=== PATIENT | male | born 1960 | race Caucasian/White ===

== ENCOUNTER 2016-08-09 17:58 | Emergency (ER) | payer OTHER ==
[~2016-08-09] VITALS: Ht 172.7 cm; Wt 80.5 kg
[~2016-08-09 17:58] MED LIST: CLEOCIN300 MG; DURAGESIC25 MCG; DURAGESIC25 MCG TD; Duragesic TD; Imodium PO; LISINOPRIL10 MG PO; Levaquin; Protonix; ROXICODONE GT; oxyCODONE PO
[2016-08-09 19:37] VITALS: BP 99/62
== END 2016-08-09 19:37 | disposition home or self-care (01) ==
LOC: RME 17:58 → EME 17:58 → RME 19:37
PROC: 0D20XUZ Change Feeding Device in Upper Intestinal Tract, External Approach (ICD-10-PCS; principal; 2016-08-09)
DX: Z43.1 Encounter for attention to gastrostomy (principal); Z93.0 Tracheostomy status; Z85.810 Personal history of malignant neoplasm of tongue; Z87.891 Personal history of nicotine dependence
CPT/HCPCS: 74000; 99281; 99283

== ENCOUNTER 2016-09-28 08:39 | Emergency (ER) | payer OTHER ==
[~2016-09-28] VITALS: Ht 170.2 cm; Wt 75.1 kg
[2016-09-28 11:00] VITALS: BP 98/62
[2016-10-04] MEDS ORDERED: OXYCODONE H5 MG/5 ML PO (20:31)
== END 2016-09-28 11:00 | disposition home or self-care (01) ==
LOC: EME 08:39
PROC: 0D20XUZ Change Feeding Device in Upper Intestinal Tract, External Approach (ICD-10-PCS; principal; 2016-09-28)
DX: K94.20 Gastrostomy complication, unspecified (principal); Z85.810 Personal history of malignant neoplasm of tongue; Z87.891 Personal history of nicotine dependence; Z85.819 Personal history of malignant neoplasm of unspecified site of lip, oral cavity, and pharynx; Z93.0 Tracheostomy status
CPT/HCPCS: 74000; 99281; 99284; B4087

== ENCOUNTER 2016-10-02 14:29 | Inpatient (IN) | payer OTHER ==
[~2016-10-02] VITALS: Ht 162.6 cm; Wt 78.2 kg
[2016-10-02 15:28] LABS: CHLORIDE 81 mEq/L (99-109); POTASSIUM 2.9 mEq/L (3.7-5.4); SODIUM 132 mEq/L (136-147)
[2016-10-02 15:30] LABS: GLUCOSE 124 mg/dL (70-99)
[2016-10-02 15:31] LABS: HEMATOCRIT 19.3 % (38.0-50.0); MCH 27.6 PG (29.0-34.0); MCHC 31.6 G/DL (30.0-36.0); MCV 87.3 FL (86-99); MEAN PLAT.VOLUME 10.6 uM^3 (9.0-12.4); PLATELET COUNT 138 K/uL (156-360); RBC DIS.WIDTH-CV 17.3 % (11.8-14.6); RBC DIS.WIDTH-SD 53.9 % (39-53); RED BLOOD COUNT 2.21 M/uL (4.00-5.50)
[2016-10-02 15:32] LABS: ANION GAP 17 MEQ/L (2-14)
[2016-10-02 15:34] LABS: GFR ESTIMATE (CALCULATED) 56 mL/min/
[2016-10-02 15:35] LABS: UREA NITROGEN (BUN) 30 mg/dL (9-23)
[2016-10-02 18:25] LABS: INTER. NORMALIZED RATIO 1.1; PROTHROMBIN TIME 11.3 (9.2-11.2); PTT 27.6 (25-32)
[2016-10-02 19:06] LABS: Estimated Average Glucose 77 mg/dL (70-123)
[2016-10-02 20:17] LABS: HEMOGLOBIN A1c (GLYCOHEMOGLOB) 4.3 % HGB (Below 5.7)
[2016-10-02 20:39] VITALS: BP 103/77
[2016-10-02 21:57] VITALS: BP 135/81
[2016-10-02 22:57] VITALS: BP 135/81
[2016-10-03] VITALS (10 sets, daily range): BP systolic 105–166; BP diastolic 58–82
[2016-10-03 07:23] LABS: ANION GAP 11 MEQ/L (2-14); CHLORIDE 85 MEQ/L (99-109); GFR ESTIMATE (CALCULATED) > 59 mL/min/; POTASSIUM 3.3 MEQ/L (3.7-5.4); SAMPLE HEMOLYSIS CHECK 0; SAMPLE ICTERIC CHECK 0; SAMPLE LIPEMIA CHECK 0; SODIUM 130 MEQ/L (136-147); UREA NITROGEN (BUN) 30 mg/dL (9-23)
[2016-10-03 07:27] LABS: GLUCOSE 92 mg/dL (70-99)
[2016-10-03 08:00] LABS: HEMATOCRIT 24.2 % (38.0-50.0); MCH 28.5 PG (29.0-34.0); MCHC 32.6 G/DL (30.0-36.0); MCV 87.4 FL (86-99); MEAN PLAT.VOLUME 11.2 uM^3 (9.0-12.4); PLATELET COUNT 105 K/uL (156-360); RBC DIS.WIDTH-CV 16.4 % (11.8-14.6); WHITE BLOOD COUNT 6.9 K/uL (4.1-10.2)
[2016-10-03 08:12] LABS: RED BLOOD COUNT 2.77 M/uL (4.00-5.50)
[2016-10-03 12:57] LABS: ABSOLUTE RETICULOCYTE CT. 0.1 M/uL (0.02-0.08); IMM.RETIC FRACTION 24.9 % (3-19); RETIC HGB EQUIVALENT 24.4 (28-36); RETICULOCYTE COUNT 3.1 % (0.5-1.8)
[2016-10-03 13:31] LABS: ALKALINE PHOSPHATASE 89 IU/L (3-129); ANION GAP 10 MEQ/L (2-14); C-REACTIVE PROTEIN 33.8 MG/L (0-10); CHLORIDE 85 MEQ/L (99-109); GFR ESTIMATE (CALCULATED) > 59 mL/min/; GLOBULINS 3.3 G/DL (2.3-3.5); GLUCOSE 105 mg/dL (70-99); POTASSIUM 3.5 MEQ/L (3.7-5.4); PREALBUMIN 16.7 mg/dL (10-40); SAMPLE HEMOLYSIS CHECK 0; SAMPLE ICTERIC CHECK 0; SAMPLE LIPEMIA CHECK 0; SODIUM 129 MEQ/L (136-147); TOTAL BILIRUBIN 0.6 MG/DL (0.0-1.0); UREA NITROGEN (BUN) 27 mg/dL (9-23)
[2016-10-03 13:42] LABS: FERRITIN 27 NG/ML (22-322)
[2016-10-03 19:58] LABS: HEMATOCRIT 24.9 % (38.0-50.0); MCV 87.4 FL (86-99)
[2016-10-04 03:32] VITALS: BP 101/61
[2016-10-04 07:22] LABS: EOSINOPHIL (%) 2.7 % (0-5); EOSINOPHIL COUNT 0.2 K/uL (0-0.3); HEMATOCRIT 26.9 % (38.0-50.0); IMMATURE GRANULOCYTE (%) 0.9 % (0.0-0.7); IMMATURE GRANULOCYTE COUNT 0.1 K/uL; INSTRUMENT ABS NEUTROPHIL CT 4.4 K/uL; LYMPHOCYTE COUNT 0.3 K/uL (1.0-2.8); MCH 27.7 PG (29.0-34.0); MCHC 31.6 G/DL (30.0-36.0); MCV 87.6 FL (86-99); MEAN PLAT.VOLUME 11.7 uM^3 (9.0-12.4); MONOCYTE COUNT 0.9 K/uL (0-0.8); NEUTROPHIL (%) 75.9 % (45-76); NEUTROPHIL COUNT 4.4 K/uL (1.8-6.4); PLATELET COUNT 101 K/uL (156-360); RBC DIS.WIDTH-CV 16.7 % (11.8-14.6); RBC DIS.WIDTH-SD 52.3 % (39-53); RED BLOOD COUNT 3.07 M/uL (4.00-5.50); WHITE BLOOD COUNT 5.9 K/uL (4.1-10.2)
[2016-10-04 07:29] VITALS: BP 95/62
[2016-10-04 07:43] LABS: ALKALINE PHOSPHATASE 82 IU/L (3-129); ANION GAP 9 MEQ/L (2-14); CHLORIDE 88 MEQ/L (99-109); GFR ESTIMATE (CALCULATED) > 59 mL/min/; GLUCOSE 78 mg/dL (70-99); POTASSIUM 3.6 MEQ/L (3.7-5.4); SAMPLE HEMOLYSIS CHECK 0; SAMPLE ICTERIC CHECK 0; SAMPLE LIPEMIA CHECK 0; SODIUM 129 MEQ/L (136-147); TOTAL BILIRUBIN 0.6 MG/DL (0.0-1.0); UREA NITROGEN (BUN) 22 mg/dL (9-23)
[2016-10-04 11:22] VITALS: BP 112/60
[2016-10-04 15:13] VITALS: BP 104/68
[2016-10-04 19:54] VITALS: BP 106/63
[2016-10-04] MEDS ORDERED: OXYCODONE H5 MG/5 ML GT (20:31)
[2016-10-04 21:02] VITALS: BP 117/72
[2016-10-05] VITALS: BP 88/57
[2016-10-05 07:28] LABS: HEMATOCRIT 23.9 % (38.0-50.0); MCH 28.9 PG (29.0-34.0); MCHC 33.5 G/DL (30.0-36.0); MCV 86.3 FL (86-99); PLATELET COUNT 231 K/uL (156-360); RBC DIS.WIDTH-CV 17.1 % (11.8-14.6); RBC DIS.WIDTH-SD 52.1 % (39-53); RED BLOOD COUNT 2.77 M/uL (4.00-5.50)
[2016-10-05 07:31] LABS: ANION GAP 12 MEQ/L (2-14); CHLORIDE 94 MEQ/L (99-109); GFR ESTIMATE (CALCULATED) > 59 mL/min/; GLUCOSE 88 mg/dL (70-99); POTASSIUM 3.2 MEQ/L (3.7-5.4); SAMPLE HEMOLYSIS CHECK 0; SAMPLE ICTERIC CHECK 0; SAMPLE LIPEMIA CHECK 0; SODIUM 132 MEQ/L (136-147); UREA NITROGEN (BUN) 16 mg/dL (9-23)
[2016-10-05 08:03] VITALS: BP 88/51
[2016-10-05 08:25] LABS: LACTATE DEHYDROGENASE 153 IU/L (20-246)
[2016-10-05 09:12] LABS: EOSINOPHIL (%) 4.2 % (0-5); EOSINOPHIL COUNT 0.2 K/uL (0-0.3); IMMATURE GRANULOCYTE (%) 1.2 % (0.0-0.7); IMMATURE GRANULOCYTE COUNT 0.1 K/uL; INSTRUMENT ABS NEUTROPHIL CT 3.7 K/uL; LYMPHOCYTE COUNT 0.2 K/uL (1.0-2.8); MONOCYTE (%) 15.9 % (3-12); MONOCYTE COUNT 0.8 K/uL (0-0.8); NEUTROPHIL (%) 73.3 % (45-76); NEUTROPHIL COUNT 3.7 K/uL (1.8-6.4)
[2016-10-05 11:26] LABS: IFE GEL NO. 36-8
[2016-10-05 12:40] LABS: POC NON-PRINT COM 1 ND
[2016-10-06 00:18] VITALS: BP 112/71
[2016-10-06 08:02] VITALS: BP 117/78
[2016-10-06 08:21] LABS: ANION GAP 12 MEQ/L (2-14); CHLORIDE 94 MEQ/L (99-109); GFR ESTIMATE (CALCULATED) > 59 mL/min/; GLUCOSE 83 mg/dL (70-99); SAMPLE HEMOLYSIS CHECK 0; SAMPLE ICTERIC CHECK 0; SAMPLE LIPEMIA CHECK 0; SODIUM 133 MEQ/L (136-147); UREA NITROGEN (BUN) 16 mg/dL (9-23)
[2016-10-06 08:38] LABS: EOSINOPHIL (%) 4.3 % (0-5); EOSINOPHIL COUNT 0.2 K/uL (0-0.3); HEMATOCRIT 26.1 % (38.0-50.0); IMMATURE GRANULOCYTE (%) 1.1 % (0.0-0.7); IMMATURE GRANULOCYTE COUNT 0.1 K/uL; INSTRUMENT ABS NEUTROPHIL CT 4.1 K/uL; LYMPHOCYTE COUNT 0.2 K/uL (1.0-2.8); MCH 27.8 PG (29.0-34.0); MCHC 31.4 G/DL (30.0-36.0); MCV 88.5 FL (86-99); MONOCYTE (%) 13.4 % (3-12); MONOCYTE COUNT 0.7 K/uL (0-0.8); NEUTROPHIL (%) 76.3 % (45-76); NEUTROPHIL COUNT 4.1 K/uL (1.8-6.4); NRBC (%) 0.4 /100 WBC (0-0); RBC DIS.WIDTH-SD 53.5 % (39-53); RED BLOOD COUNT 2.95 M/uL (4.00-5.50); WHITE BLOOD COUNT 5.4 K/uL (4.1-10.2)
[2016-10-06 09:36] LABS: PLAT.SUFFICIENCY ADEQUATE; PLATELET CLUMPS PRESENT - PLATELET COUNT APPEARS ADQ.; PLATELET COUNT UNABLE TO REPORT K/uL (156-360)
[2016-10-06 11:09] VITALS: BP 129/86
[2016-10-06 15:10] VITALS: BP 152/74
[2016-10-07 00:09] VITALS: BP 143/79
[2016-10-07 08:01] VITALS: BP 99/63
[2016-10-07] MEDS ORDERED: FEOSOL300 MG/5 M GT (10:42)
[2016-10-10 13:42] LABS: ALBUMIN 3.12 G/DL (3.6-4.9); ALBUMIN PERCENT 50.4 %; ALPHA-1 GLOBULIN 0.36 G/DL (0.15-0.40); ALPHA-1 PERCENT 5.8 %; ALPHA-2 GLOBULIN 0.87 G/DL (0.45-0.85); ALPHA-2 PERCENT 14.1 %; BETA PERCENT 12.1 %; GAMMA PERCENT 17.6 %; SERUM GEL NO. 41-3
== END 2016-10-07 12:49 | disposition home health service (06) | DRG 812 ==
LOC: EME 14:29 → EDOF 20:54 → 5SOUTH 20:54 → 4EAST 20:54 → 5SOUTH 10-04 21:02
PROVIDERS: Hospitalist; Internal Medicine; Internal Medicine Hematology & Oncology; Student in an Organized Health Care Education/Training Program
PROC: 30233N1 Transfusion of Nonautologous Red Blood Cells into Peripheral Vein, Percutaneous Approach (ICD-10-PCS; principal; 2016-10-02)
DX: D53.9 Nutritional anemia, unspecified (principal); N17.9 Acute kidney failure, unspecified; E87.6 Hypokalemia; E87.1 Hypo-osmolality and hyponatremia; D50.9 Iron deficiency anemia, unspecified; F10.10 Alcohol abuse, uncomplicated; I95.9 Hypotension, unspecified; G89.29 Other chronic pain; R00.0 Tachycardia, unspecified; Z87.891 Personal history of nicotine dependence; Z85.810 Personal history of malignant neoplasm of tongue; Z93.0 Tracheostomy status; Z93.1 Gastrostomy status
CPT/HCPCS: 49440; 71020; 76705; 80048; 80053; 81003; 82272; 82607; 82728; 82746; 83010 90; 83036; 83605; 83615; 83883 90; 84134; 84165; 85014; 85018; 85025; 85027; 85045; 85610; 85651; 85730; 86140; 86334; 86850; 86900; 86901; 86920; 87040; 93005; 94799; 99281; 99285; B4087; C1892; J1644; J1756; J3480; J7030; J7050; P9016

== ENCOUNTER 2016-10-08 15:38 | Inpatient (IN) | payer OTHER ==
[~2016-10-08] VITALS: Ht 170.2 cm; Wt 77.8 kg
[~2016-10-08 15:38] MED LIST changes: +FEOSOL300 MG/5 M GT; +OXYCODONE H5 MG/5 ML GT
[2016-10-08 17:21] LABS: HEMATOCRIT 26.9 % (38.0-50.0); MCH 28.1 PG (29.0-34.0); MCV 87.9 FL (86-99); MEAN PLAT.VOLUME 11.3 uM^3 (9.0-12.4); RBC DIS.WIDTH-CV 16.6 % (11.8-14.6); RBC DIS.WIDTH-SD 52.8 % (39-53); RED BLOOD COUNT 3.06 M/uL (4.00-5.50); WHITE BLOOD COUNT 4.3 K/uL (4.1-10.2)
[2016-10-08 17:33] LABS: POTASSIUM 3.3 mEq/L (3.7-5.4); SODIUM 133 mEq/L (136-147)
[2016-10-08 17:35] LABS: GLUCOSE 73 mg/dL (70-99)
[2016-10-08 17:36] LABS: ANION GAP 17 MEQ/L (2-14)
[2016-10-08 17:37] LABS: CHLORIDE 99 mEq/L (99-109)
[2016-10-08 17:38] LABS: SERUM ETHYL ALCOHOL 257 mg/dL
[2016-10-08 17:39] LABS: GFR ESTIMATE (CALCULATED) > 59 mL/min/
[2016-10-08 17:41] LABS: UREA NITROGEN (BUN) 14 mg/dL (9-23)
[2016-10-08 17:42] LABS: SALICYLATE < 5.0 MG/DL (15-30)
[2016-10-08 17:45] LABS: TROP-I INTERPRETATION NEGATIVE; TROPONIN-I < 0.01 ng/mL (0.0-0.30)
[2016-10-08 17:51] LABS: PLATELET COUNT 88 K/uL (156-360)
[2016-10-08 20:49] LABS: ADD MEDTOX COMMENT Y; AMPHETAMINE NEGATIVE (500 ng/mL); BARBITURATES NEGATIVE (200 ng/mL); BENZODIAZEPINES PRESUMPTIVE POSITIVE (150 ng/mL); COCAINE NEGATIVE (150 ng/mL); INTERNAL CONTROLS VALID? YES; METHADONE NEGATIVE (200 ng/mL); METHAMPHETAMINE NEGATIVE (500 ng/mL); OPIATES (MORPHINE) NEGATIVE (100 ng/mL); OXYCODONE PRESUMPTIVE POSITIVE (100 ng/mL); PHENCYCLIDINE NEGATIVE (25 ng/mL); PROPOXYPHENE NEGATIVE (300 ng/mL); THC CANNABINOIDS NEGATIVE (50 ng/mL); TRICYCLIC ANTIDEPRESSANTS NEGATIVE (300 ng/mL)
[2016-10-08 20:50] LABS: BILIRUBIN NEGATIVE; BLOOD NEGATIVE; COLOR YELLOW ((YELLOW)); GLUCOSE (STRIP) NEGATIVE; KETONES 5; LEUKOCYTES NEGATIVE; NITRITE NEGATIVE; PROTEIN (STRIP) NEGATIVE; SPECIFIC GRAVITY 1.008 (1.000-1.030); UROBILINOGEN 0.2 MG/DL (0.2-1.0)
[2016-10-08 20:53] LABS: ADD MIUA? NO; UCUL ADDED? NO
[2016-10-08 21:16] LABS: BENZODIAZEPINES, URINE SCREEN POSITIVE (200 ng/mL)
[2016-10-09] VITALS (10 sets, daily range): BP systolic 132–152; BP diastolic 61–95
[2016-10-09 09:44] LABS: BASE EXCESS -1.4 mEq/L (-3 to +3); BICARBONATE 22.2 mEq/L (22-26); CARBOXY HGB 2.1 % (0-5); COMMENTS - BLOOD GASES A+C+; DEVICE TRACH COLOR; FI02 40 %; METHEMOGLOBIN 1.3 % (0-1.5); O2 FLOW 8 L/MIN; PCO2 32 mm Hg (35-45); PO2 114 mm Hg (80-100); SITE LR; TOTAL RESP RATE 14 resp/min; pH 7.45 (7.35-7.45)
[2016-10-09 10:25] LABS: EOSINOPHIL (%) 1.9 % (0-5); EOSINOPHIL COUNT 0.1 K/uL (0-0.3); HEMATOCRIT 25.6 % (38.0-50.0); IMMATURE GRANULOCYTE (%) 1.2 % (0.0-0.7); IMMATURE GRANULOCYTE COUNT 0.1 K/uL; INSTRUMENT ABS NEUTROPHIL CT 3.7 K/uL; LYMPHOCYTE COUNT 0.3 K/uL (1.0-2.8); MCH 28.1 PG (29.0-34.0); MCHC 30.9 G/DL (30.0-36.0); MCV 91.1 FL (86-99); MONOCYTE (%) 13.3 % (3-12); MONOCYTE COUNT 0.6 K/uL (0-0.8); NEUTROPHIL (%) 76.8 % (45-76); NEUTROPHIL COUNT 3.7 K/uL (1.8-6.4); PLATELET COUNT 103 K/uL (156-360); RBC DIS.WIDTH-CV 16.6 % (11.8-14.6); RED BLOOD COUNT 2.81 M/uL (4.00-5.50); WHITE BLOOD COUNT 4.8 K/uL (4.1-10.2)
[2016-10-09 10:55] LABS: ALKALINE PHOSPHATASE 87 IU/L (3-129); ANION GAP 10 MEQ/L (2-14); GFR ESTIMATE (CALCULATED) > 59 mL/min/; GLUCOSE 82 mg/dL (70-99); MAGNESIUM 1.4 mg/dl (1.3-2.7); SAMPLE HEMOLYSIS CHECK 0; SAMPLE ICTERIC CHECK 0; SAMPLE LIPEMIA CHECK 0; UREA NITROGEN (BUN) 12 mg/dL (9-23)
[2016-10-09 11:02] LABS: TOTAL BILIRUBIN 0.4 MG/DL (0.0-1.0)
[2016-10-09 11:55] LABS: CHLORIDE 103 MEQ/L (99-109); POTASSIUM 3.9 MEQ/L (3.7-5.4); SODIUM 137 MEQ/L (136-147)
[2016-10-09 13:38] LABS: METH RESISTANT S AUREUS PCR NEGATIVE (NEGATIVE); PROBE CHECK PASS; SPECIMEN PROCESSING CONTROL PASS
[2016-10-10] VITALS (12 sets, daily range): BP systolic 131–166; BP diastolic 81–105
[2016-10-10 05:56] LABS: EOSINOPHIL (%) 2.7 % (0-5); EOSINOPHIL COUNT 0.1 K/uL (0-0.3); HEMATOCRIT 24.6 % (38.0-50.0); IMMATURE GRANULOCYTE (%) 1.1 % (0.0-0.7); IMMATURE GRANULOCYTE COUNT 0.1 K/uL; INSTRUMENT ABS NEUTROPHIL CT 3.1 K/uL; LYMPHOCYTE COUNT 0.2 K/uL (1.0-2.8); MCH 27.4 PG (29.0-34.0); MCHC 29.7 G/DL (30.0-36.0); MCV 92.5 FL (86-99); MEAN PLAT.VOLUME 12.1 uM^3 (9.0-12.4); MONOCYTE (%) 19.3 % (3-12); MONOCYTE COUNT 0.9 K/uL (0-0.8); NEUTROPHIL (%) 71.2 % (45-76); NEUTROPHIL COUNT 3.1 K/uL (1.8-6.4); PLATELET COUNT 105 K/uL (156-360); RBC DIS.WIDTH-CV 17.2 % (11.8-14.6); RBC DIS.WIDTH-SD 56.2 % (39-53); RED BLOOD COUNT 2.66 M/uL (4.00-5.50); WHITE BLOOD COUNT 4.4 K/uL (4.1-10.2)
[2016-10-10 06:56] LABS: ALKALINE PHOSPHATASE 73 IU/L (3-129); ANION GAP 10 MEQ/L (2-14); CHLORIDE 105 MEQ/L (99-109); GFR ESTIMATE (CALCULATED) > 59 mL/min/; POTASSIUM 3.9 MEQ/L (3.7-5.4); SAMPLE HEMOLYSIS CHECK 0; SAMPLE ICTERIC CHECK 0; SAMPLE LIPEMIA CHECK 0; SODIUM 140 MEQ/L (136-147); UREA NITROGEN (BUN) 13 mg/dL (9-23)
[2016-10-10 06:57] LABS: GLUCOSE 104 mg/dL (70-99)
[2016-10-10 06:58] LABS: TOTAL BILIRUBIN 0.3 MG/DL (0.0-1.0)
[2016-10-11 01:25] VITALS: BP 161/91
[2016-10-11 04:52] VITALS: BP 150/76
[2016-10-11 07:32] VITALS: BP 166/78
[2016-10-11 11:30] VITALS: BP 157/87
== END 2016-10-11 15:48 | DRG 922 ==
LOC: EME → EDBD 15:38 → EME 15:38 → EDOF 10-09 00:27 → 5WEST 10-09 01:30 → 4WEST 10-09 09:38 → 5WEST 10-09 09:38 → 4EAST 10-09 09:38 → 4WEST 10-09 11:41 → 4EAST 10-11 00:07
PROVIDERS: Emergency Medicine; Hospitalist
PROC: 0HQHXZZ Repair Right Upper Leg Skin, External Approach (ICD-10-PCS; principal; 2016-10-10)
DX: T68.XXXA Hypothermia, initial encounter (principal); G93.40 Encephalopathy, unspecified; X31.XXXA Exposure to excessive natural cold, initial encounter; Y92.029 Unspecified place in mobile home as the place of occurrence of the external cause; J96.20 Acute and chronic respiratory failure, unspecified whether with hypoxia or hypercapnia; R22.0 Localized swelling, mass and lump, head; S71.011A Laceration without foreign body, right hip, initial encounter; W06.XXXA Fall from bed, initial encounter; Y92.230 Patient room in hospital as the place of occurrence of the external cause; Y99.8 Other external cause status; F10.231 Alcohol dependence with withdrawal delirium; Y90.8 Blood alcohol level of 240 mg/100 ml or more; R62.7 Adult failure to thrive; Z66 Do not resuscitate; Z51.5 Encounter for palliative care; D64.9 Anemia, unspecified; E87.6 Hypokalemia; E86.0 Dehydration; G89.29 Other chronic pain; F41.9 Anxiety disorder, unspecified; Z93.0 Tracheostomy status; Z93.1 Gastrostomy status; Z93.3 Colostomy status; Z85.810 Personal history of malignant neoplasm of tongue; Z79.891 Long term (current) use of opiate analgesic; Z87.891 Personal history of nicotine dependence; Z92.3 Personal history of irradiation; Z91.19 Patient's noncompliance with other medical treatment and regimen
CPT/HCPCS: 36600; 70450; 70498; 71010; 80048; 80053; 81003; 82803; 83605; 83735; 84484; 84999; 85025; 85027; 87040; 87641; 93005; 93306; 94640; 94640 76; 94799; 99202; 99281; 99285; G0480; J1200; J1630; J1650; J2060; J2270; J3411; J7030; J7608; S0028

== ENCOUNTER 2016-10-11 16:01 | Inpatient (IN) | payer OTHER ==
[2016-10-14 23:32] VITALS: BP 160/99
[2016-10-15] VITALS: BP 160/99
[2016-10-15 22:30] VITALS: BP 173/94
[2016-10-25 08:35] VITALS: BP 0/0
[2016-10-25] MEDS ORDERED: NAPROXEN500 MG PO (11:02)
[2016-10-25] MEDS ORDERED: BACTROBAN OINTM22 GM TP (11:02)
[2016-10-25] MEDS ORDERED: BISAC-EVAC10 MG PR (11:02)
[2016-10-25] MEDS ORDERED: COMPAZINE10 MG GT (11:02)
== END 2016-10-25 10:50 | disposition hospice, home (50) | DRG 951 ==
LOC: 4EAST 16:01 → 5EAST 16:01
DX: Z51.5 Encounter for palliative care (principal); J96.20 Acute and chronic respiratory failure, unspecified whether with hypoxia or hypercapnia; R62.7 Adult failure to thrive; Z66 Do not resuscitate; M1A.0710 Idiopathic chronic gout, right ankle and foot, without tophus (tophi); D50.8 Other iron deficiency anemias; F41.9 Anxiety disorder, unspecified; Z93.1 Gastrostomy status; Z93.0 Tracheostomy status; Z85.810 Personal history of malignant neoplasm of tongue; Z90.49 Acquired absence of other specified parts of digestive tract
CPT/HCPCS: 94799; J1200; J1630; J2060; J2270; J2920; J7512; Q0164

== ENCOUNTER 2016-11-12 10:11 | Emergency (ER) | payer OTHER ==
[~2016-11-12] VITALS: Ht 172.7 cm; Wt 77.9 kg
[~2016-11-12 10:11] MED LIST changes: +BACTROBAN OINTM22 GM TP; +BISAC-EVAC10 MG PR; +COMPAZINE10 MG GT; +NAPROXEN500 MG PO
[2016-11-12 14:16] VITALS: BP 145/94
== END 2016-11-12 14:10 | disposition home or self-care (01) ==
LOC: EME 10:11
PROC: 3C1ZX8Z Irrigation of Indwelling Device using Irrigating Substance, External Approach (ICD-10-PCS; principal; 2016-11-12)
DX: T82.898A Other specified complication of vascular prosthetic devices, implants and grafts, initial encounter (principal); Z93.0 Tracheostomy status; Z85.810 Personal history of malignant neoplasm of tongue; G89.29 Other chronic pain; M54.9 Dorsalgia, unspecified; Z87.891 Personal history of nicotine dependence
CPT/HCPCS: 99281; 99284; J0692; J2997; J7050

== ENCOUNTER → 2016-11-15 | Outpatient (CLI) | payer OTHER | END | disposition home or self-care (01) | LOC: PICC 13:45 | DX: M27.2 Inflammatory conditions of jaws (principal) | CPT/HCPCS: 76937 ==

== ENCOUNTER → 2017-03-07 | Outpatient (CLI) | payer OTHER ==
[~2017-03-07] MED LIST changes: +LISINOPRIL10 MG GT
== END | disposition home or self-care (01) ==
LOC: AMB 12:58
PROC: 0DH Gastrointestinal System, Insertion (ICD-10-PCS; principal; 2017-03-07)
DX: K94.23 Gastrostomy malfunction (principal); C76.0 Malignant neoplasm of head, face and neck
CPT/HCPCS: 43760; B4087

== ENCOUNTER 2017-05-28 11:25 | Observation (INO) | payer OTHER ==
[~2017-05-28] VITALS: Ht 172.7 cm; Wt 82.0 kg
[2017-05-28 12:00] LABS: HEMATOCRIT 31.9 % (38.0-50.0); MCH 31.4 PG (29.0-34.0); MCHC 34.2 G/DL (30.0-36.0); MCV 91.9 FL (86-99); MEAN PLAT.VOLUME 10.5 uM^3 (9.0-12.4); PLATELET COUNT 191 K/uL (156-360); RBC DIS.WIDTH-CV 15.7 % (11.8-14.6); RBC DIS.WIDTH-SD 52.5 % (39-53); RED BLOOD COUNT 3.47 M/uL (4.00-5.50); WHITE BLOOD COUNT 12.2 K/uL (4.1-10.2)
[2017-05-28 12:12] LABS: CHLORIDE 96 mEq/L (99-109); POTASSIUM 3.9 mEq/L (3.7-5.4); SODIUM 134 mEq/L (136-147)
[2017-05-28 12:14] LABS: GLUCOSE 126 mg/dL (70-99)
[2017-05-28 12:15] LABS: ANION GAP 8 MEQ/L (2-14)
[2017-05-28 12:18] LABS: GFR ESTIMATE (CALCULATED) > 59 mL/min/
[2017-05-28 12:19] LABS: UREA NITROGEN (BUN) 47 mg/dL (9-23)
[2017-05-28 14:55] LABS: INTER. NORMALIZED RATIO 1.1
[2017-05-28 14:58] LABS: PTT 30.6 SEC (25-37)
[2017-05-28] MEDS ORDERED: LISINOPRIL20 MG GT (22:25)
[2017-05-28] MEDS ORDERED: ATORVASTATIN CA40 MG GT (22:26)
[2017-05-28] MEDS ORDERED: TRAMADOL HCL50 MG GT (22:27)
[2017-05-28] MEDS ORDERED: FEOSOL300 MG/5 M GT (22:29)
[2017-05-29 01:33] VITALS: BP 165/89
[2017-05-29 07:29] VITALS: BP 100/54
[2017-05-29 09:03] LABS: MCH 31.1 PG (29.0-34.0); MCHC 33.8 G/DL (30.0-36.0); MCV 92.1 FL (86-99); PLATELET COUNT 176 K/uL (156-360); RBC DIS.WIDTH-CV 15.9 % (11.8-14.6); RBC DIS.WIDTH-SD 52.6 % (39-53); RED BLOOD COUNT 3.15 M/uL (4.00-5.50); WHITE BLOOD COUNT 9.1 K/uL (4.1-10.2)
[2017-05-29 09:29] LABS: ANION GAP 10 MEQ/L (2-14); CHLORIDE 98 MEQ/L (99-109); GFR ESTIMATE (CALCULATED) > 59 mL/min/; GLUCOSE 106 mg/dL (70-99); POTASSIUM 4.2 MEQ/L (3.7-5.4); SAMPLE HEMOLYSIS CHECK 0; SAMPLE ICTERIC CHECK 0; SAMPLE LIPEMIA CHECK 0; SODIUM 137 MEQ/L (136-147); UREA NITROGEN (BUN) 44 mg/dL (9-23)
[2017-05-29] MEDS ORDERED: BACTROBAN OINTM22 GM TP (12:08)
== END 2017-05-29 13:50 | disposition home or self-care (01) ==
LOC: EME 11:25 → EDOF 22:24 → 5SOUTH 22:24 → ENRESERV 22:26 → EDOF 05-29 01:21 → 5SOUTH 05-29 01:22
PROVIDERS: Emergency Medicine; Physician Assistant Medical
DX: R04.2 Hemoptysis (principal); K94.23 Gastrostomy malfunction; J95.09 Other tracheostomy complication; Z85.818 Personal history of malignant neoplasm of other sites of lip, oral cavity, and pharynx; R94.8 Abnormal results of function studies of other organs and systems; R59.1 Generalized enlarged lymph nodes; F10.11 Alcohol abuse, in remission; D50.9 Iron deficiency anemia, unspecified; I71.2 Thoracic aortic aneurysm, without rupture; Z66 Do not resuscitate; Z87.891 Personal history of nicotine dependence
CPT/HCPCS: 71020; 71275; 74000; 80048; 85027; 85610; 85730; 86850; 86900; 86901; 94799; 99281; 99285; B4087; G0378; J7030

== ENCOUNTER → 2017-07-26 | Outpatient (CLI) | payer OTHER ==
[~2017-07-26] MED LIST changes: +ATORVASTATIN CA40 MG GT; +LISINOPRIL20 MG GT; +TRAMADOL HCL50 MG GT
== END | disposition home or self-care (01) ==
LOC: RAD 09:50
DX: I71.2 Thoracic aortic aneurysm, without rupture (principal); M87.9 Osteonecrosis, unspecified; Z96.89 Presence of other specified functional implants; R93.8 Abnormal findings on diagnostic imaging of other specified body structures
CPT/HCPCS: 70491; 71260

== ENCOUNTER 2017-12-03 11:18 | Emergency (ER) | payer OTHER ==
[~2017-12-03] VITALS: Ht 172.7 cm; Wt 92.6 kg
[2017-12-03 11:54] LABS: BASOPHIL (%) 0.4 % (0-1); EOSINOPHIL (%) 1.5 % (0-5); EOSINOPHIL COUNT 0.1 K/uL (0-0.3); HEMATOCRIT 36.8 % (38.0-50.0); IMMATURE GRANULOCYTE (%) 0.9 % (0.0-0.7); LYMPHOCYTE (%) 3.7 % (15-42); LYMPHOCYTE COUNT 0.3 K/uL (1.0-2.8); MCHC 32.6 G/DL (30.0-36.0); MCV 82.9 FL (86-99); MONOCYTE (%) 13.4 % (3-12); MONOCYTE COUNT 0.9 K/uL (0-0.8); NEUTROPHIL (%) 80.1 % (45-76); NEUTROPHIL COUNT 5.4 K/uL (1.8-6.4); PLATELET COUNT 63 K/uL (156-360); RBC DIS.WIDTH-CV 17.7 % (11.8-14.6); RBC DIS.WIDTH-SD 52.6 % (39-53); RED BLOOD COUNT 4.44 M/uL (4.00-5.50); WHITE BLOOD COUNT 6.7 K/uL (4.1-10.2)
[2017-12-03 12:02] LABS: CHLORIDE 98 mEq/L (99-109); POTASSIUM 4.7 mEq/L (3.7-5.4); SODIUM 135 mEq/L (136-147)
[2017-12-03 12:03] LABS: GLUCOSE 108 mg/dL (70-99)
[2017-12-03 12:07] LABS: CREATININE 1.3 mg/dL (0.6-1.3); GFR ESTIMATE (CALCULATED) > 59 mL/min/ (58.99-99999)
[2017-12-03 12:08] LABS: UREA NITROGEN (BUN) 31 mg/dL (9-23)
[2017-12-03] MEDS ORDERED: LISINOPRIL10 MG GT (13:27)
[2017-12-03] MEDS ORDERED: QBRELIS1 MG/1 ML GT (13:31)
[2017-12-03 14:09] VITALS: BP 145/94
== END 2017-12-03 14:10 | disposition home or self-care (01) ==
LOC: EME 11:18
PROVIDERS: Emergency Medicine
DX: I10 Essential (primary) hypertension (principal); Z93.0 Tracheostomy status; Z85.818 Personal history of malignant neoplasm of other sites of lip, oral cavity, and pharynx; G89.29 Other chronic pain; Z87.891 Personal history of nicotine dependence
CPT/HCPCS: 80048 91; 85025; 99281; 99284

== ENCOUNTER 2018-01-04 12:02 | Emergency (ER) | payer OTHER ==
[~2018-01-04] VITALS: Ht 172.7 cm; Wt 88.6 kg
[~2018-01-04 12:02] MED LIST changes: +QBRELIS1 MG/1 ML GT
[2018-01-04 13:29] VITALS: BP 152/94
== END 2018-01-04 13:30 | disposition home or self-care (01) ==
LOC: EME 12:02
PROC: 0D20XUZ Change Feeding Device in Upper Intestinal Tract, External Approach (ICD-10-PCS; principal; 2018-01-04)
DX: Z43.1 Encounter for attention to gastrostomy (principal); Z53.29 Procedure and treatment not carried out because of patient's decision for other reasons
CPT/HCPCS: 99281; 99284; B4087